=== PATIENT | female | born 1940 | race African-American/Black ===

== ENCOUNTER → 2018-04-18 | Outpatient (CLI) | payer MEDICARE ==
[~2018-04-18] MED LIST: IOPAMIDOL 370 MG/ML 200 ML INFUS..BTL INJ ONE; SODIUM CHLORIDE 0.9% 50ML 50 ML ONE
[2018-04-18 17:07] LABS: BLOOD UREA NITROGEN 22 mg/dL (7-26); BUN/CREATININE RATIO 22 (6-25); EST GLOMERULAR FILTRATION RATE > 60 ML/MIN (60-)
--- NOTE | 2018-04-18 21:57 | Diagnostic Imaging Report ---
EXAM: CTA CHEST, ABDOMEN, PELVIS WITH IV CONTRAST DATE: April 18, 2018 Time stamp on Exam: 1735 hours INDICATION: Abdominal aortic aneurysm COMPARISON: None TECHNIQUE: The chest and abdomen were scanned using a multidetector helical scanner. Coronal and sagittal reformations were obtained. CTA protocol performed. For optimization of anatomic evaluation, multiplanar reconstruction, maximum intensity projections, and advanced 3-D off-line postprocessing were performed on a dedicated stand-alone workstation. IV Contrast: 100 cc Isovue-370 Oral Contrast: None FINDINGS: VASCULAR WITH ADVANCED 3-D OFF-LINE POSTPROCESSING: Measurements of the aorta obtained orthogonal to the longitudinal axis: 3.5 cm at the level of the sinuses of Valsalva 3.2 cm at the sino-tubular junction 3.7 cm in the mid ascending aorta 3.2 cm in the mid aortic arch 2.8 cm in the proximal descending aorta 2.8 cm in the mid descending aorta 2.8 cm at the level of the diaphragmatic hiatus 2.7 cm at the level of the celiac trunk 2.3 cm at the level of the superior mesenteric artery 1.9 cm at level of the renal arteries 1.5 cm just above the level of the bifurcation Thoracic Aorta and proximal branches: The thoracic aorta is normal without evidence of aneurysm or dissection. There is no evidence of intramural or periaortic hematoma. There is preservation of the sinotubular junction. The innominate, proximal subclavian, and common carotid arteries are normal in branching order and size. Mild calcifications of the aortic annulus. Scattered calcifications of the coronary arteries. Mild calcifications of the thoracic aorta. Abdominal Aorta and proximal branches: The abdominal aorta is without dissection or aneurysm. Mild calcified atherosclerotic changes. The celiac, superior mesenteric, inferior mesenteric, and bilateral renal arteries are patent without significant stenosis. There is a single left and 2 right renal arteries. Pelvic vasculature: The bilateral common, internal and external iliac arteries are patent with mild amount of calcified atherosclerotic plaquing. The right common iliac artery measures 0.9 cm and the left common iliac artery measures 0.9. NON-VASCULAR FINDINGS: LUNGS AND AIRWAYS: No consolidations or suspicious nodules. PLEURA: No effusions or pneumothorax HEART/MEDIASTINUM: The heart is within normal size limits. No mediastinal mass or lymphadenopathy. Circumferential thickening of the left ventricle. LIVER: No masses BILIARY: The gallbladder is unremarkable. No ductal dilatation. SPLEEN: No masses PANCREAS: No masses ADRENALS: No nodules KIDNEYS: Bilateral simple renal cysts. GI TRACT: The partially visualized bowel is unremarkable. PERITONEUM/RETROPERITONEUM: No free air or fluid LYMPH NODES: No lymphadenopathy SOFT TISSUES: Unremarkable BONES: No acute findings. Multilevel degenerative disc of the thoracolumbar spine. IMPRESSION: No thoracoabdominal aortic aneurysm. Mild atherosclerotic changes. No evidence of vessel stenosis. Signed by: Dr. Michelle Hammer M.D. on 04/18/2018 9:54 PM
== END ==
LOC: CT 16:11
PROVIDERS: ATTEND Internal Medicine Interventional Cardiology
DX: I71.4 Abdominal aortic aneurysm, without rupture (principal)
CPT/HCPCS: 36415; 71275; 74175; 82565; 84520; Q9967

== ENCOUNTER → 2020-08-17 | Day surgery (SDC) | payer MEDICARE ==
[2020-08-12 09:27] LABS: BASOPHILS # (AUTO) 0.1 (0.0-0.1); BASOPHILS % 0.8 % (0.0-1.0); EOSINOPHILS # (AUTO) 0.1 (0.0-0.4); EOSINOPHILS % 1.8 % (0.0-6.0); HEMATOCRIT 41.1 % (34.2-44.1); HEMOGLOBIN 12.8 g/dL (12.0-16.0); LYMPHOCYTES # (AUTO) 1.3 (1.0-3.2); LYMPHOCYTES % 21.4 % (18.0-39.1); MEAN CORPUSCULAR HEMOGLOBIN 29.9 pg (28-32); MEAN CORPUSCULAR HGB CONC 31.1 g/dL (31-35); MONOCYTES # (AUTO) 0.4 (0.2-0.8); MONOCYTES % 6.2 % (4.4-11.3); NEUTROPHILS # (AUTO) 4.2 (2.1-6.9); NEUTROPHILS % 69.5 % (38.7-80.0); PLATELET COUNT 245 x10e3/uL (140-360); RED BLOOD COUNT 4.28 x10e6/uL (3.6-5.1); RED CELL DISTRIBUTION WIDTH 14.6 % (11.7-14.4)
[2020-08-12 09:48] LABS: ALBUMIN 4.2 g/dL (3.5-5.0); ALBUMIN/GLOBULIN RATIO 1.4 (0.8-2.0); ANION GAP 15.5 mmol/L (8-16); CALCIUM 9.4 mg/dL (8.4-10.2); CREATININE, SERUM 1.16 mg/dL (0.57-1.11); POTASSIUM 3.5 mmol/L (3.5-5.1)
--- NOTE | 2020-08-12 16:15 | NUR ---
1615pm Phone assessment for Aug 17 Dr Alexander. Scheduled for LHC/stent and Peripheral angio and intervention. Pt denies Covid s/s and aware of necessity to continue quarantine.Aware of arrival time and necessity of responsible ride Daughter Elizabeth will arrive at 1030am ds/rn
[~2020-08-17] VITALS: Ht 165.1 cm; Wt 71.7 kg
[2020-08-17] VITALS (12 sets, daily range): BP systolic 116–151; BP diastolic 68–88
[~2020-08-17] MED LIST changes: +ALPRAZOLAM 0.5 MG TAB ONE; +ASPIRIN 325 MG TAB ONE; +BIVALRIUDIN 250 MG/VIAL VIAL IV ONE; +CENTRUM ADULTS1 EACH PO; +CINNAMON500 MG PO; +CLOPIDOGREL75 MG PO; +CO Q-10 100 MG1 EACH PO; +CRESTOR10 MG PO; +DIPHENHYDRAMINE HCL 25 MG CAP ONE; +FENTANYL CITRATE/PF 100MCG/2 ML INJ ONE; +HEPARIN SOD/SOD CHLORIDE 2,000 ML ONE; +HYDROCODONE/APAP 5MG-325MG TAB ONE; +IOPAMIDOL 300MG/ML 100 ML INFUS..BTL IV ONE; +JANUVIA100 MG PO; +LIDOCAINE HCL 2% LOCAL 20 ML VIAL ONE; +LISINOPRIL10 MG PO; +MEGARED OMEGA-1 EAC1 PO; +METOPROLOL SUCC25 MG; +METOPROLOL SUCC50 MG PO; +MIDAZOLAM HCL 2 MG/2 ML VIAL ONE; +PIOGLITAZONE HC45 MG PO; +PIOGLITAZONE15 MG PO; +PRASUGREL 10 MG TAB ONE; +SODIUM CHLORIDE 0.9% 1000ML 1,000 ML ONE; +TRIAMTERENE PO; +TRIAMTERENE-HC1 EAC2 PO
--- NOTE | 2020-08-17 11:16 | NUR ---
1116am PREP NOTE PROCEDURAL .................................................................................. pt in #10 prepped for procedure. Alert oriented and appropriate, PERRLA, respirations even and unlabored to room air. Pulses x4 extremities equal and faint. Pedal pulses PT/DP weak Doppler only marked. Cap fill brisk < [address] Benjamin aguillon and [facility]. Skin warm and dry integrity appears intact in general. IV left ac started stick x1 secured and presents healthy w/o s/s of infiltration or complaint.. Abdomen soft and supple. pt offered toileting, denies need to urinate or defecate. Personal affects with patient. Family at bedside daughter Elizabeth. Pt and family verbalizes understanding of POC. Pre-Op Meds Benadryl and Xanax given. bed low and locked, side rails up x2 and call light at side. -ds/rn -
--- NOTE | 2020-08-17 13:35 | NUR ---
1335 pm RECEIVING NOTE [employer] [facility]............................................................... Bedside report received from NAVEED Penn. Identifierx2. Alert oriented and appropriate, PERRLA, respirations even and unlabored to room air. Pulses x2 extremities equal and strong. Pedal pulses PT/DP X4 Doppler and marked. Cap fill brisk < 3 sec. Left Perclose. Skin warm and dry integrity appears D/I. IV 20g to left ac at 100cchr. presents healthy w/o s/s of infiltration or complaint. Abdomen soft and supple. pt offered toileting, denies need to urinate or defecate. No personal affects with patient. Family daughter at bedside. Pt and family verbalizes understanding of POC. Currently w/o complaint of pain or need. ds/rn
--- NOTE | 2020-08-17 14:29 | Operative Report ---
DATE OF PROCEDURE: 08/17/2020 SURGEON: Michael Alexander MD INDICATIONS: 1. Peripheral arterial disease, claudication of both lower extremities. 2. Coronary artery disease with angina and abnormal stress test. COMPLICATIONS: None. RECOMMENDATIONS: 1. Dual antiplatelet therapy for life. 2. Staged peripheral vascular and coronary interventions. BLOOD LOSS: Minimal. PROCEDURES PERFORMED: 1. Ultrasound-guided access in the right femoral artery with sheath placement. 2. Conscious sedation, 65 minutes. 3. Left heart catheterization, selective coronary angiography. 4. Stent placement to the proximal left anterior descending artery. 5. Abdominal aortogram runoff to bilateral femoral artery. 6. Left groin Perclose closure device. DESCRIPTION OF PROCEDURE: Access was obtained in the left femoral artery. A 6-Ukrainian sheath was placed. Coronary angiography demonstrated heavily calcified vessels, proximal left anterior descending artery 90% stenosis, obtuse marginal 90% stenosis, right coronary artery 90% stenosis, heavily calcified. Abdominal aortogram demonstrated heavily calcified abdominal aorta, occlusion of the right-sided femoral artery stent, 90% stenosis in the left femoral artery stent, focal stenosis, two-vessel runoff. A decision was made to intervene on the left anterior descending artery. The patient received intravenous Angiomax for anticoagulation as well as oral prasugrel and aspirin. The left main was cannulated using an XB3.5, 6-Ukrainian guiding catheter. A short Runthrough wire was advanced for support, predilatation with 3 mm balloon following which a single 3.5 x 16 mm Synergy stent was deployed, post dilated with a 4 mm balloon. Excellent end result, less than 10% residual stenosis, ELLIOT-3 flow. No complications. Wire and guide sheath removed. Left groin repaired using Perclose closure device. The patient discharged home the same day. MD ANNE-MARIE Gutierrez/MODL /[id number]
--- NOTE | 2020-08-17 14:30 | NUR ---
1430 c/o back pain call Dr Alexander Narco 325/5mg x1 given. Informed pt to call for help. Bed in low position,call light by pt and daughter at bedside. ds/rn
--- NOTE | 2020-08-17 15:00 | NUR ---
1500 reposition for comfort states back pain better dc papers completed for dc stable vs NO gross issues pain,pallor pressure or dysrhythmia.ds/rn
--- NOTE | 2020-08-17 18:00 | NUR ---
1800pm [employer] DISCHARGE NURSING NOTE Pt meets DC criteria. Left groin assessed for s/s of complication and presence of hematoma. Skin warm, dry, no discolor, and pulses present. IV removed from left ac. Distal tip appears intact. VS WNL. Pt denies pain, sob, or need at this time. Family at BS. Review of discharge paperwork and follow up instructions. verbalized understanding. Pt to wheelchair and transported to front of hospital. Transferred to private vehicle under own strength w/o incident with DC paperwork in hand. - carmita/yumiko
== END | disposition home or self-care (01) ==
LOC: CATH LAB 10:29
PROVIDERS: ATTEND Internal Medicine Interventional Cardiology
DX: I25.118 Atherosclerotic heart disease of native coronary artery with other forms of angina pectoris (principal); I70.213 Atherosclerosis of native arteries of extremities with intermittent claudication, bilateral legs; R94.39 Abnormal result of other cardiovascular function study; I77.1 Stricture of artery; I11.0 Hypertensive heart disease with heart failure; I50.20 Unspecified systolic (congestive) heart failure; E11.8 Type 2 diabetes mellitus with unspecified complications; Z01.812 Encounter for preprocedural laboratory examination; Z11.59 Encounter for screening for other viral diseases; Z79.82 Long term (current) use of aspirin; Z79.02 Long term (current) use of antithrombotics/antiplatelets; Z79.84 Long term (current) use of oral hypoglycemic drugs; Z82.49 Family history of ischemic heart disease and other diseases of the circulatory system
CPT/HCPCS: 75716; 93454; C9600; 36415; 75625; 75630; 76937; 80053; 82948; 85025; 92928; 99152; 99153; C1725; C1760; C1769; C1874; C1887; J0583; J2001; J2250; J3010; J7030; Q9967

== ENCOUNTER → 2020-09-09 | Day surgery (SDC) | payer MEDICARE, OTHER ==
[2020-09-05 09:41] LABS: BASOPHILS % 0.4 % (0.0-1.0); EOSINOPHILS # (AUTO) 0.2 (0.0-0.4); EOSINOPHILS % 2.4 % (0.0-6.0); HEMOGLOBIN 12.5 g/dL (12.0-16.0); LYMPHOCYTES # (AUTO) 1.7 (1.0-3.2); LYMPHOCYTES % 22.8 % (18.0-39.1); MEAN CORPUSCULAR HEMOGLOBIN 30.2 pg (28-32); MEAN CORPUSCULAR HGB CONC 31.3 g/dL (31-35); MEAN CORPUSCULAR VOLUME 96.6 fL (81-99); MONOCYTES # (AUTO) 0.4 (0.2-0.8); MONOCYTES % 5.7 % (4.4-11.3); NEUTROPHILS % 68.4 % (38.7-80.0); PLATELET COUNT 270 x10e3/uL (140-360); RED BLOOD COUNT 4.14 x10e6/uL (3.6-5.1); RED CELL DISTRIBUTION WIDTH 14.4 % (11.7-14.4)
[2020-09-05 10:07] LABS: ALBUMIN 3.7 g/dL (3.5-5.0); ANION GAP 15.6 mmol/L (8-16); CALCIUM 9.8 mg/dL (8.4-10.2); CREATININE, SERUM 1.2 mg/dL (0.57-1.11); POTASSIUM 3.6 mmol/L (3.5-5.1)
[~2020-09-09] VITALS: Ht 165.1 cm; Wt 71.7 kg
[2020-09-09] VITALS (15 sets, daily range): BP systolic 132–167; BP diastolic 60–99
[~2020-09-09] MED LIST changes: +HEPARIN SOD (PORCINE) 1000 UNIT/ML 30ML ONE; -HYDROCODONE/APAP 5MG-325MG TAB ONE; -IOPAMIDOL 300MG/ML 100 ML INFUS..BTL IV ONE; +MORPHINE SULFATE INJ 4 MG/ML INJ 1ML ONE; +NITROGLYCERIN/D5W 200 MCG/ML 250 ML ONE; +VERAPAMIL HCL 2.5 MG/ML 2 ML VIAL ONE
--- NOTE | 2020-09-09 08:30 | NUR ---
0830pm RECEIVING NOTE [employer] DEPT............................................................... Bedside report received from NAVEED Penn. Identifierx2. Alert oriented and appropriate, PERRLA, respirations even and unlabored to room air. Pulses x4 extremities equal and strong. Pedal pulses PT/DP X4 and marked. Cap fill brisk < 3 sec. Rt Tr band intact No gross issues pain,pallor,pressure or dysrhythmia. Rt Groin 6fr stable NO gross issues pain,pallor.Will recheck act at 1230. Skin warm and dry integrity appears D/I. IV 20g to left ac at 100cchr till 1liter completed, presents healthy w/o s/s of infiltration or complaint. Abdomen soft and supple. pt offered toileting, denies need to urinate or defecate. No personal affects with patient. Family at bedside. Pt and family verbalizes understanding of POC.Potential dc at 1600p with tiemly sheath removal and downtime. Currently w/o complaint of pain or need. carmita/rn
--- NOTE | 2020-09-09 08:48 | Operative Report ---
DATE OF PROCEDURE: 09/09/2020 SURGEON: Michael Alexander MD INDICATION: Coronary artery disease, staged coronary intervention, angina. PROCEDURES PERFORMED: 1. aborted access due to the right . 2. Left heart catheterization, selective coronary angiography. 3. Stent placement to the artery. COMPLICATIONS: None. BLOOD LOSS: Minimal. RECOMMENDATIONS: Dual antiplatelet therapy for life. DESCRIPTION OF PROCEDURE: Access was obtained in the right radial artery using ultrasound guidance. A 6-Latvian sheath was placed difficulty negotiating the wire to the right axillary artery due to 90% stenosis. This access was aborted. Right groin access was obtained. The patient received Angiomax for anticoagulation. The left main was cannulated using an XB3.5, 6-Latvian guiding catheter. An 80% to 90% stenosis of the mid circumflex artery. A single 2.75 x 12 mm Synergy stent was deployed at 20 atmospheres. Excellent end result, less than 10% residual stenosis, ELLIOT-3 flow. No complications. Sheath removed under manual pressure. The patient discharged home the same day. Michael Alexnader MD [facility]/MODL /[id number]
--- NOTE | 2020-09-09 09:45 | NUR ---
0945 Act 167 chava 1hr carmita/rn Addendum: 09/09/20 at 1809 by Cristina Gamez RN 0945 act check time was 1230 chava due at 130 ds/rn
--- NOTE | 2020-09-09 09:45 | NUR ---
0945 co back pain from down time medicated 4mg Morphine ivp with adequate results family remains at bedside No no issues pallor or dysrhythmia. ACT scheduled 1230 iv thinner completes at 1030am. carmita/yumiko
--- NOTE | 2020-09-09 13:30 | NUR ---
1330p Act check resulted 147 ok to pull notified systems technologist. Dilshad Technologist. Cristina Rn at bedside 1410p pull initiated per Dilshad RT PP present. 133/75 Pr 61 R 19 Sats 99% RA [id number] Pr 62 R19 [id number] Pr 58 R20 [id number] Pr 66 R19 [id number] Pr 68 R 18 Pressure hold completed(20min) with Tegaderm dressing and 2x2 No gross issues pain,pallor pressure or dysrhythmia ds/rn
--- NOTE | 2020-09-09 14:30 | NUR ---
1430pm TR band removal 12cc in band balloon 1430p -2cc Removed No hematoma/ bleeding noted with normal neurovascular function. 1445cc -5cc Removed No hematoma/bleeding noted with normal neurovascular function. 1500p -5cc Removed No hematoma/ bleeding noted with normal neurovascular function. Air removal completed. Stasis achieved sterile 2x2,Tegaderm, Coban dressing No hematoma, bleeding noted with normal neurovascular function. Pt instructed on POC. Ds/Rn
--- NOTE | 2020-09-09 15:30 | NUR ---
1530pm sheath pull successful c/o back pain for long down time ,1st initial 0945am dose Morphine 4mg "really helped" Pt to dc home at 1830p. Medicated 4mg Morphine ivp. Vs stable NO other c/o Rt Tr band intact. No gross issues pain,pallor or dysrhythmia. Daughter left to return at dc time. side rails up call light at bedside.Bed in low position.ds/rn
--- NOTE | 2020-09-09 16:30 | NUR ---
!630 Handoff completed to Davonte Lynn No gross issues pain pallor pressure or dysrhythmia.Postop teaching completed with daughter Elizabeth who has copies dc plans. Transfered to [facility] PACU for remainder of stay. Daughter Elizabeth notified of transfer of care. NO concerns aware of importance of F/o care Dr Alexander appointment and any control of bleeding issues. carmita/davonte
--- NOTE | 2020-09-09 16:30 | NUR ---
1630: re'cd 79 y/o female from the [employer] lab[employer], s/p lt heart cath lying supine in the stretcher aa&0x4. rt TR BAND SITE NOTED WITH PRESSURE DRSG AND IS NOTED C/D/I. RT RADIAL PULSE PRESENT BY PALPATION. RT GROIN DRSG NOTED C/D/I. NO OBJ S/S OF HEMATOMA NOTED. SITE IS SOFT TO THE TOUCH AND PT REPORTS NO PAIN TO EITHER PUNCTURE SITES. VSS. WILL MONITOR.
--- NOTE | 2020-09-09 16:30 | NUR ---
1630: REPORT RE'CD FROM ROLAND BRUSHING OPERATOR RN
--- NOTE | 2020-09-09 18:00 | NUR ---
1800: PT'S DAUGHTER AT BS. BED REST COMPLETE. HOB ELEVATED TO 40 DEGREES AT THIS TIME. RT GROIN DRSG AND RT TR BAND SITE DRSG NOTED C/D/I. PT REPORTS SLIGHT "DIZZINESS". WILL CONTINUE TO MONITOR.
--- NOTE | 2020-09-09 18:10 | NUR ---
181: PT REPORTS "DIZZINESS" IS RESOLVED." 1814: PT AMBULATING TO BR WITH RN ESCORT. 181: PT RETURNING FROM BR WITH RN. RT GROIN DRSG IS NOTED C/D/I. NO S/S OF HEMATOMA OR ACTIVE BLEEDING NOTED. 182: 20G TO PT'S LAC DC'ED AND DRSG PLACED. CATHETER TIP NOTED INTACT. PT TOLERATED WELL. 1820: PT GETTING DRESSED WITH ASSIST FROM HER DAUGHTER. DENIES ANY DIZZINESS.
--- NOTE | 2020-09-09 18:30 | NUR ---
1830: PT LEAVING RECOVERY VIA WC FOR HOME WITH RN ESCORT.
== END | disposition home or self-care (01) ==
LOC: CATH LAB 06:05
PROVIDERS: ATTEND Internal Medicine Interventional Cardiology
DX: I25.10 Atherosclerotic heart disease of native coronary artery without angina pectoris (principal); I73.9 Peripheral vascular disease, unspecified; I77.1 Stricture of artery; I25.118 Atherosclerotic heart disease of native coronary artery with other forms of angina pectoris; I11.0 Hypertensive heart disease with heart failure; I50.20 Unspecified systolic (congestive) heart failure; E11.8 Type 2 diabetes mellitus with unspecified complications; Z01.812 Encounter for preprocedural laboratory examination; Z11.59 Encounter for screening for other viral diseases; Z79.84 Long term (current) use of oral hypoglycemic drugs; Z79.02 Long term (current) use of antithrombotics/antiplatelets; Z82.49 Family history of ischemic heart disease and other diseases of the circulatory system
CPT/HCPCS: 76937; C9600; 36415; 80053; 85025; 92928; 99152; 99153; C1766; C1769; C1874; C1887; J0583; J1644; J2001; J2250; J2270; J3010; J7030; Q9967